=== PATIENT | female | born 1955 | race American Indian/Alaskan Native ===

== ENCOUNTER 2019-03-03 14:28 | Emergency (ER) | payer SELFPAY ==
--- NOTE | 2019-03-03 14:39 | Event Note ---
ED Screening Note Date of service: 03/03/19 Time: 14:36 ED Screening Note: Rash on feet times 1 week. PMH htn. bp 213/141 pulse 105. No medss This initial assessment/diagnostic orders/clinical plan/treatment(s) is/are subject to change based on patients health status, clinical progression and re- assessment by fellow clinical providers in the ED. Further treatment and workup at subsequent clinical providers discretion. Patient/guardian urged not to elope from the ED as their condition may be serious if not clinically assessed and managed. Initial orders include:
[2019-03-03] MEDS ORDERED: NORMODYNE IV ONE (14:58)
[2019-03-03] MEDS ORDERED: POLYSPORIN TP ONE (14:58)
[2019-03-03] MEDS ORDERED: TRIPLE ANTIBIOTIC TP ONE (15:00)
[2019-03-03 15:31] LABS: Mean Corpuscular HGB Conc 34 % (30-34); Mean Corpuscular Volume 90 fl (79-97); Platelet Count 155 K/mm3 (140-440); Red Blood Count 4.56 M/mm3 (3.65-5.03)
[2019-03-03 15:53] LABS: BUN/Creatinine Ratio 10; Blood Urea Nitrogen 8 mg/dL (7-17); Calcium 8.8 mg/dL (8.4-10.2); Hemolysis Index 2
[2019-03-03 16:43] LABS: Basophils % (Manual) 0 % (0.0-1.8); Eosinophils % (Manual) 0 % (0.0-4.3); Platelet Estimate Consistent w Auto; RBC Morphology Normal; Total Cells Counted 100
[2019-03-03 16:48] VITALS: BP 193/101
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
[2019-03-03] MEDS ORDERED: NORMODYNE PO ONE ×2 (16:50→18:00)
== END 2019-03-03 17:06 | disposition home or self-care (01) ==
LOC: ED 14:28
DX: I16.0 Hypertensive urgency (principal); R21 Rash and other nonspecific skin eruption; Z79.899 Other long term (current) drug therapy
CPT/HCPCS: 36415; 80048; 82962; 85007; 85025; 96374; 99283; 99284; A6250